=== PATIENT | female | born 1960 | race American Indian/Alaskan Native ===

== ENCOUNTER 2016-09-21 17:00 | Outpatient (CLI) | payer OTHER ==
[2016-09-21 17:48] LABS: Hematocrit 38.5 % (30.3-42.9); Hemoglobin 12.4 gm/dl (10.1-14.3); Mean Corpuscular HGB Conc 32 % (30-34); Mean Corpuscular Hemoglobin 28 pg (28-32); Mean Corpuscular Volume 86 fl (79-97); Platelet Count 253 K/mm3 (140-440); Red Blood Count 4.47 M/mm3 (3.65-5.03); White Blood Count 7.7 K/mm3 (4.5-11.0)
[2016-09-21 18:29] LABS: Erythrocyte Sedimentation Rate 38 mm/Hr (0-20); Mean Platelet Volume 7.4 fl (6-12)
[2016-09-21 19:21] LABS: Alanine Aminotransferase 13 units/L (7-56); Albumin 3.8 g/dL (3.9-5); Albumin/Globulin Ratio 1.2 %; Alkaline Phosphatase 56 units/L (35-129); Anion Gap 15 mmol/L; BUN/Creatinine Ratio 16.66; Bilirubin,Total 0.2 mg/dL (0.1-1.2); Blood Urea Nitrogen 15 mg/dL (7-17); Calcium 9.4 mg/dL (8.4-10.2); Carbon Dioxide 26 mmol/L (22-30); Chloride 100.1 mmol/L (98-107); Glucose 100 mg/dL (65-100); Potassium 4.1 mmol/L (3.6-5.0); Sodium 137 mmol/L (137-145); Total Protein 6.9 g/dL (6.3-8.2); Uric Acid 4.4 mg/dL (3.5-7.6)
--- NOTE | 2016-09-22 08:51 | XRay Report ---
Right knee: Periarticular spurs are present involving both medial and lateral joint compartments. Their articular margins do appear relatively smooth. There is alignment of the knee. The bones are well-mineralized. There are no effusions and no swelling identified. Impression: Degenerative changes of both medial and lateral compartments.
== END 2016-09-21 17:01 | disposition home or self-care (01) ==
LOC: XRAY 17:00
PROVIDERS: ATTEND Internal Medicine Rheumatology
DX: M79.7 Fibromyalgia (principal)
CPT/HCPCS: 36415; 80053; 82164; 84550; 85027; 85652; 86038; 86140; 86200; 86225; 86235; 86618

== ENCOUNTER 2017-01-18 13:34 | Outpatient (CLI) | payer OTHER ==
--- NOTE | 2017-01-18 14:21 | Mammography Report ---
Bilateral mammogram: No previous studies available. CAD study utilized. Findings: Predominance of adipose tissue bilaterally. No mass or microcalcification. Benign axillary nodes. Focal architectural distortion upper left breast. Impression: Focal architectural distortion upper left breast. Comparison with previous studies is recommended. If previous studies are not available spot magnification view if necessary sonographic examination advised. BI-RADS CATEGORY: 0 = Needs additional imaging evaluation ACR BI-RADS MAMMOGRAPHIC CODES: 0 = Needs additional imaging evaluation; 1 = Negative; 2 = Benign; 3 = Probably benign; 4 = Suspicious; 5 = Malignant; 6 = Known biopsy-proven malignancy COMMENT: 1. Dense breast tissue, i.e., adenosis, fibrocystic changes, etc., may obscure an underlying neoplasm. 2. Approximately 10% of cancers are not detected with mammography. 3. A negative mammography report should not delay biopsy if a clinically suspicious mass is present. COMMENT: Patient follow-up letters are generated in [employer].
== END 2017-01-18 13:35 | disposition home or self-care (01) ==
LOC: MAMMO 13:34
PROVIDERS: ATTEND Family Medicine
DX: Z12.31 Encounter for screening mammogram for malignant neoplasm of breast (principal)
CPT/HCPCS: 77067; G0202